=== PATIENT | male | born 1975 | race Caucasian/White ===

== ENCOUNTER 2017-01-20 15:31 | Emergency (ER) | payer BC ==
--- NOTE | 2017-01-20 15:44 | UC ---
Cardiac HPI - HPI Summary HPI Summary: 41 YEAR OLD MALE PRESENTS WITH RIGHT SIDED CHEST PAIN, ARM WEAKNESS AND NUMBNESS. I WILL SEND HIM TO THE ER TO RULE OUT VT/PE - History of Current Complaint Stated Complaint: NAUSEA ARM WEAK AND TNGLES Time Seen by Provider: 01/20/17 15:43 - Allergy/Home Medications Allergies/Adverse Reactions: Allergies Allergy/AdvReac Type Severity Reaction Status Date / Time No Known Allergies Allergy Verified 01/20/17 15:45 Home Medications: Home Medications Amphetamine/Dextroamph ER(NF) [Adderal XR (NF)] 2 tab PO QAM 01/20/17 [History Confirmed 01/20/17] PMH/Surg Hx/FS Hx/Imm Hx Previously Healthy: Yes Review of Systems Constitutional: Negative Skin: Negative Eyes: Negative ENT: Negative Respiratory: Shortness Of Breath Cardiovascular: Chest Pain - RIGHT SIDED Gastrointestinal: Negative Genitourinary: Negative Motor: Negative Neurovascular: Negative Musculoskeletal: Negative Neurological: Negative Psychological: Negative All Other Systems Reviewed And Are Negative: Yes Physical Exam Triage Information Reviewed: Yes Eye Exam: Normal ENT Exam: Normal Dental Exam: Normal Neck exam: Normal Neck: Positive: 1 Respiratory Exam: Normal Cardiovascular Exam: Normal Abdominal Exam: Normal Musculoskeletal Exam: Normal Neurological Exam: Normal Psychological Exam: Normal Skin Exam: Normal - Clinical Impression Provider Diagnoses: RIGHT SIDED CHEST PAIN. RIGHT ARM NUMBNESS Discharge - Discharge Plan Condition: Stable Disposition: HOME Patient Education Materials: Chest Pain (ED) Referrals: No Primary Care Phys,NOPCP [Primary Care Provider] - Additional Instructions: PLEASE GO TO ER TO RULE OUT VT
[2017-01-20 15:53] VITALS: BP 143/95
== END 2017-01-20 15:56 | disposition home or self-care (01) ==
LOC: UCEAST 15:31
DX: R07.89 Other chest pain (principal); R20.0 Anesthesia of skin; R06.02 Shortness of breath
CPT/HCPCS: 93005; 99201; G0463

== ENCOUNTER 2017-01-20 16:38 | Emergency (ER) | payer BC ==
[2017-01-20] MEDS ORDERED: NS 0.9% 1000 ML* 1,000 ML IV SCH (17:45)
[2017-01-20 18:01] LABS: Hematocrit 45 % (42-52); Hemoglobin 14.9 g/dl (14.0-18.0); Mean Corpuscular HGB Conc 34 g/dl (31-36); Mean Corpuscular Hemoglobin 30 pg (27-31); Mean Corpuscular Volume 88 fL (80-94); Mean Platelet Volume 8 um3 (7.4-10.4); Red Blood Count 5.06 10^6/ul (4.0-5.4); Red Cell Distribution Width 13 % (10.5-15); White Blood Count 7.2 10^3/ul (3.5-10.8)
[2017-01-20 18:25] LABS: Albumin 4.3 g/dL (3.2-5.2); BUN/Creatinine Ratio 15.2 (8-20); C Reactive Protein 3.05 mg/L (< 5.00); Calcium 8.6 mg/dL (8.6-10.3); EGFR African American 108.2 (>60); EGFR Non-African American 84.2 (>60); Globulin 2.7 g/dL (2-4); Magnesium 2.1 mg/dL (1.9-2.7); Total Bilirubin 0.3 mg/dL (0.2-1.0)
[2017-01-20 18:29] LABS: Potassium 4.2 mmol/L (3.5-5.0)
--- NOTE | 2017-01-20 18:30 | RAD ---
INDICATION: Weakness and fatigue COMPARISON: None. TECHNIQUE: Single AP portable view of the chest was obtained. FINDINGS: Image quality is compromised due to the relative inferiority of a portable chest x-ray. The heart and mediastinum exhibit normal size and contour. The lungs are grossly clear. There is no evidence of a large pleural effusion. Visualized bones are normal for the patient's age. IMPRESSION: No radiographic evidence for acute cardiopulmonary abnormality on this portable chest x-ray.
[2017-01-20 18:54] LABS: TSH (Thyroid Stimulating Horm) 1.59 mcIU/mL (0.34-5.60)
[2017-01-20 20:25] LABS: Urine Bilirubin Negative (Negative); Urine Glucose Negative (Negative); Urine Nitrite Negative (Negative)
--- NOTE | 2017-01-20 20:55 | RAD ---
indication: Right arm weakness with tingling and pain. COMPARISON: None A CT scan of the brain and c-spine was performed without intravenous contrast enhancement. Contiguous axial sections were obtained from the lung apices through the vertex. BRAIN: The ventricles, cisterns and sulci are within normal limits. No significant focal abnormality or mass effect is seen. The victor-white differentiation is adequately maintained. There is no evidence for intracranial hemorrhage. No significant bony abnormality is present. The mastoid air cells are appropriately aerated. There is moderate mucosal thickening of the bilateral ethmoid air cells and mild mucosal thickening of the sphenoid sinuses. C-SPINE: On the sagittal view images the vertebral bodies and bilateral facet joints are correctly aligned. The dens is intact and the atlantoaxial interval is not widened. There is intervertebral disc height loss and degeneration at C3/C4, C4/C5 and C5/C6. There is no hyperdense material in the cervical canal to indicate hemorrhage. The visualized musculature and soft tissues are normal. There is no gross lymphadenopathy visualized. The visualized portion of the lung apices are clear. IMPRESSION: 1. No calvarial fracture or acute intracranial hemorrhage. 2. Moderate paranasal sinus mucosal disease. 3. Degenerative disc disease of the cervical spine from C3 through C6. If clinically warranted superior characterization of the cervical spine can be made with nonemergent MRI.
--- NOTE | 2017-01-20 20:57 | RAD ---
INDICATION: Right arm weakness and right shoulder pain. Previous night the patient reports shortness of breath and nausea that has since resolved. COMPARISON: None TECHNIQUE: Axial source images of the chest were acquired without intravenous contrast from just above the lung apices to the base of the diaphragm. Coronal and sagittal reconstructed images were acquired. FINDINGS: There are no focal infiltrates or effusions. There are no pulmonary parenchymal masses. The heart is normal in size. There is no evidence of pericardial effusion. There is no evidence of aortic aneurysm or dissection. There is no readily apparent mediastinal, hilar, or axillary lymphadenopathy. The osseous structures appear normal. The visualized portions of the liver are homogenously hypodense relative to the spleen. IMPRESSION: 1. Normal noncontrast CT of the chest. 2. Likely hepatic steatosis.
--- NOTE | 2017-01-20 21:29 | ED ---
Demond Peacock Angela, scribed for Bimal Villanueva MD on 01/20/17 at 1936 . HPI Chest Pain - HPI Summary HPI Summary: 41 y/o male presents to the ED with nausea x1 week, weakness and dull pain on his R arm and fatigue x2 weeks. Pt notes that his arm feels weak from his collar bone down to his arm and has limited strength to lift up his R arm due to a sharp/dull pain. He reports his R leg feels stiff, he wouldn't call it "normal." He endorses a stiff neck when moving his neck to the right. Last night he felt SOB while sleeping and had to ambulate for relief. One week ago, pt notes he had an intermittent headache located across his forehead, now resolved. He has taken ibuprofen with no relief. Pt denies any trauma to the area, fever, myalgia, chest pain. No hx of tick bites. - History of Current Complaint Chief Complaint: EDChestPainROMI Time Seen by Provider: 01/20/17 19:12 Hx Obtained From: Patient Onset/Duration: Started Weeks Ago Timing: Constant - Weakness on R arm. Pain Intensity: 5 Aggravating Factor(s): Nothing Alleviating Factor(s): Nothing - Allergy/Home Medications Allergies/Adverse Reactions: Allergies Allergy/AdvReac Type Severity Reaction Status Date / Time No Known Allergies Allergy Verified 01/20/17 15:45 Home Medications: Home Medications Amphetamine/Dextroamph ER(NF) [Adderal XR (NF)] 40 - 60 mg PO QAM 01/20/17 [ History Confirmed 01/20/17] Venlafaxine EXT RELEASE CAP* [Effexor Xr CAP*] 225 mg PO DAILY 01/20/17 [ History Confirmed 01/20/17] PMH/Surg Hx/FS Hx/Imm Hx Endocrine/Hematology History: Denies: Hx Diabetes, Hx Thyroid Disease Cardiovascular History: Denies: Hx Hypertension Respiratory History: Denies: Hx Asthma, Hx Chronic Obstructive Pulmonary Disease (COPD) GI History: Denies: Hx Ulcer Infectious Disease History: No Infectious Disease History: Denies: Hx Clostridium Difficile, Hx Hepatitis, Hx Human Immunodeficiency Virus (HIV), Hx of Known/Suspected MRSA, Hx Shingles, Hx Tuberculosis, Hx Known/ Suspected VRE, Hx Known/Suspected VRSA, History Other Infectious Disease, Traveled Outside the [place] in Last 30 Days - Social History Alcohol Use: Occasionally Substance Use Type: Reports: None Smoking Status (MU): Light Every Day Tobacco Smoker Type: Smokeless Tobacco Amount Used/How Often: ON AND OFF FOR 8 YEARS Review of Systems Positive: Fatigue. Negative: Fever Positive: Other - Stiff neck Negative: Chest Pain Positive: Shortness Of Breath - Last night, now resolved Positive: Weakness. Negative: Headache - R arm All Other Systems Reviewed And Are Negative: Yes Physical Exam - Summary Physical Exam Summary: General: well-appearing, no pain distress Skin: warm, color reflects adequate perfusion, dry Head: normal Eyes: EOMI, CLAUDIA ENT: normal Neck: supple, nontender, Full ROM. Respiratory: CTA, breath sounds present Cardiovascular: RRR Abdomen: soft, nontender Bowel: present Musculoskeletal: normal, strength/ROM intact. Good molder sweep strength. Good bicep strength. Shoulder flexion is normal bilaterally. Abduction is 170 degrees on the L and 150 on the R with some weakness at full range. Internal rotation on the left is T5, on the right is T12. Neurological: normal, sensory/motor intact, A&O x3 Psychological: affect/mood appropriate GCS: 15 Triage Information Reviewed: Yes Vital Signs On Initial Exam: Initial Vitals Temp Pulse Resp BP Pulse Ox 98.3 F 88 16 142/85 99 01/20/17 16:52 01/20/17 16:52 01/20/17 16:52 01/20/17 16:52 01/20/17 16:52 Vital Signs Reviewed: Yes Diagnostics - Vital Signs Vital Signs Temp Pulse Resp BP Pulse Ox 01/20/17 18:00 134/80 01/20/17 17:30 90 131/80 99 01/20/17 17:10 91 99 01/20/17 17:09 85 133/80 01/20/17 17:05 97.6 F 93 18 133/80 100 01/20/17 16:52 98.3 F 88 16 142/85 99 - Laboratory Lab Results: Lab Results 01/20/17 01/20/17 01/20/17 Range/Units 17:45 17:45 17:45 WBC 7.2 (3.5-10.8) 10^3/ul RBC 5.06 (4.0-5.4) 10^6/ul Hgb 14.9 (14.0-18.0) g/dl Hct 45 (42-52) % MCV 88 (80-94) fL MCH 30 (27-31) pg MCHC 34 (31-36) g/dl RDW 13 (10.5-15) % Plt Count 203 (150-450) 10^3/ul MPV 8 (7.4-10.4) um3 Neut % (Auto) 53.2 (38-83) % Lymph % (Auto) 33.2 (25-47) % Tens[place] % (Auto) 8.7 (1-9) % Eos % (Auto) 4.3 (0-6) % Baso % (Auto) 0.6 (0-2) % Absolute Neuts (auto) 3.9 (1.5-7.7) 10^3/ul Absolute Lymphs (auto) 2.4 (1.0-4.8) 10^3/ul Absolute Monos (auto) 0.6 (0-0.8) 10^3/ul Absolute Eos (auto) 0.3 (0-0.6) 10^3/ul Absolute Basos (auto) 0 (0-0.2) 10^3/ul Absolute Nucleated RBC 0.01 10^3/ul Nucleated RBC % 0.1 INR (Anticoag Therapy) 0.86 L (0.89-1.11) APTT 31.6 (26.0-36.3) seconds D-Dimer, Quantitative < 200 (Less Than 230) ng/mL Sodium 138 (133-145) mmol/L Potassium 4.2 (3.5-5.0) mmol/L Chloride 105 (101-111) mmol/L Carbon Dioxide 26 (22-32) mmol/L Anion Gap 7 (2-11) mmol/L BUN 15 (6-24) mg/dL Creatinine 0.99 (0.67-1.17) mg/dL Est GFR ( Amer) 108.2 (>60) Est GFR (Non-Af Amer) 84.2 (>60) BUN/Creatinine Ratio 15.2 (8-20) Glucose 113 H (70-100) mg/dL Lactic Acid (0.5-2.0) mmol/L Calcium 8.6 (8.6-10.3) mg/dL Magnesium 2.1 (1.9-2.7) mg/dL Total Bilirubin 0.30 (0.2-1.0) mg/dL AST 31 (13-39) U/L ALT 65 H (7-52) U/L Alkaline Phosphatase 56 (34-104) U/L Total Creatine Kinase 51 (10-223) U/L CK-MB (CK-2) 1.8 (0.6-6.3) ng/mL Troponin I 0.00 (<0.04) ng/mL C-Reactive Protein 3.05 (< 5.00) mg/L B-Natriuretic Peptide ( - 100) pg/mL Total Protein 7.0 (6.4-8.9) g/dL Albumin 4.3 (3.2-5.2) g/dL Globulin 2.7 (2-4) g/dL Albumin/Globulin Ratio 1.6 (1-3) Lipase 18 (11.0-82.0) U/L TSH 1.59 (0.34-5.60) mcIU/mL 01/20/17 01/20/17 Range/Units 17:45 17:45 WBC (3.5-10.8) 10^3/ul RBC (4.0-5.4) 10^6/ul Hgb (14.0-18.0) g/dl Hct (42-52) % MCV (80-94) fL MCH (27-31) pg MCHC (31-36) g/dl RDW (10.5-15) % Plt Count (150-450) 10^3/ul MPV (7.4-10.4) um3 Neut % (Auto) (38-83) % Lymph % (Auto) (25-47) % Tensas % (Auto) (1-9) % Eos % (Auto) (0-6) % Baso % (Auto) (0-2) % Absolute Neuts (auto) (1.5-7.7) 10^3/ul Absolute Lymphs (auto) (1.0-4.8) 10^3/ul Absolute Monos (auto) (0-0.8) 10^3/ul Absolute Eos (auto) (0-0.6) 10^3/ul Absolute Basos (auto) (0-0.2) 10^3/ul Absolute Nucleated RBC 10^3/ul Nucleated RBC % INR (Anticoag Therapy) (0.89-1.11) APTT (26.0-36.3) seconds D-Dimer, Quantitative (Less Than 230) ng/mL Sodium (133-145) mmol/L Potassium (3.5-5.0) mmol/L Chloride (101-111) mmol/L Carbon Dioxide (22-32) mmol/L Anion Gap (2-11) mmol/L BUN (6-24) mg/dL Creatinine (0.67-1.17) mg/dL Est GFR ( Amer) (>60) Est GFR (Non-Af Amer) (>60) BUN/Creatinine Ratio (8-20) Glucose (70-100) mg/dL Lactic Acid 1.5 (0.5-2.0) mmol/L Calcium (8.6-10.3) mg/dL Magnesium (1.9-2.7) mg/dL Total Bilirubin (0.2-1.0) mg/dL AST (13-39) U/L ALT (7-52) U/L Alkaline Phosphatase (34-104) U/L Total Creatine Kinase (10-223) U/L CK-MB (CK-2) (0.6-6.3) ng/mL Troponin I (<0.04) ng/mL C-Reactive Protein (< 5.00) mg/L B-Natriuretic Peptide 11 ( - 100) pg/mL Total Protein (6.4-8.9) g/dL Albumin (3.2-5.2) g/dL Globulin (2-4) g/dL Albumin/Globulin Ratio (1-3) Lipase (11.0-82.0) U/L TSH (0.34-5.60) mcIU/mL Result Diagrams: 01/20/17 17:45 01/20/17 17:45 Lab Statement: Any lab studies that have been ordered have been reviewed, and results considered in the medical decision making process. - Radiology Chest XR Xray Interpretation: No Acute Changes - IMPRESSION: no radiographic evidence for acute cardiopulmonary abnormality on this portable chest x-ray. Radiology Interpretation Completed By: Radiologist - CT CT Brain CT Interpretation: No Acute Changes - IMPRESSION: 1. No calvarial fracture or acute intracranial hemorrhage. 2. Moderate paranasal sinus mucosal disease. 3. Degenerative disc disease of the cervical spine from C3 through C6. If clinically warranted superior characterization of the cervical spine can be made with nonemergent MRI. CT Interpretation Completed By: Radiologist CT Cervical Spine CT Interpretation: Positive (See Comments) - IMPRESSION: 1. No calvarial fracture or acute intracranial hemorrhage. 2. Moderate paranasal sinus mucosal disease. 3. Degenerative disc disease of the cervical spine from C3 through C6. If clinically warranted superior characterization of the cervical spine can be made with nonemergent MRI. CT Interpretation Completed By: Radiologist CT Chest CT Interpretation: No Acute Changes - IMPRESSION: 1. Normal noncontrast CT of the chest. 2. Likely hepatic steatosis. CT Interpretation Completed By: Radiologist - EKG 17:14 Cardiac Rate: NL EKG Rhythm: Sinus Rhythm ST Segment: Normal Ectopy: None Chest Pain Course/Dx - Course Course Of Treatment: DISCUSSED RESULTS WITH PATIENT. HE HAS DECREASED ROM OF RT SHOULDER WITH POSSIBLE WEAKNESS OF THE DELTOID. HE ALSO HAS DEGENERATIVE CHANGES IN HIS NECK WHICH MAY BE CAUSING A RADICULOPATHY. HE HAS A F/U WITH HIS PMD SCHEDULED FOR 01/25/17. WE DISCUSSED THE POSSIBLE NEED FOR AN MRI. PATIENT DECLINED RX FOR ABX FOR THE CHRONIC SINUSITIS; HE WILL F/U WITH HIS ENT. - Diagnoses Provider Diagnoses: Shoulder pain, right, Shoulder pain, right, Neck pain, Decreased range of motion (ROM) of shoulder, Chronic sinusitis Discharge - Discharge Plan Condition: Stable Disposition: HOME Patient Education Materials: Shoulder Pain (ED), Neck Pain (ED), Sinusitis (ED) Referrals: No Primary Care Phys,NOPCP [Primary Care Provider] - Additional Instructions: FOLLOW UP WITH YOUR DOCTOR AT [facility] ON 01/25/17 SCHEDULED. IT IS POSSIBLE THAT YOU HAVE A PINCHED NERVE IN YOU NECK CAUSING YOUR RIGHT SHOULDER/ARM PAIN AND DECREASED RANGE OF MOTION. GET YOUR ARM RECHECKED AT YOUR DOCTOR VISIT AND DETERMINE IF AN MRI WILL BE HELPFUL. RETURN TO THE EMERGENCY DEPARTMENT FOR ANY WORSENING OF YOUR CONDITION; WEAKNESS , NUMBNESS, YOU FELL ILL OR QUESTIONS OR CONCERNS. The documentation as recorded by the Demond jon Angela accurately reflects the service I personally performed and the decisions made by me, Bimal Villanueva MD.
[2017-01-20 21:44] VITALS: BP 133/92
== END 2017-01-20 21:46 | disposition home or self-care (01) ==
LOC: ED 16:38
DX: R53.1 Weakness (principal); R53.83 Other fatigue; M25.511 Pain in right shoulder; M54.2 Cervicalgia; J32.9 Chronic sinusitis, unspecified
CPT/HCPCS: 36415; 70450; 71010; 71250; 72125; 80053; 81003; 82550; 82553; 83605; 83690; 83735; 83880; 84443; 84484; 85025; 85379; 85610; 85730; 86140; 86618; 93005; 96374; 99283

== ENCOUNTER 2017-08-14 11:51 | Emergency (ER) | payer BC ==
[2017-08-14 12:28] VITALS: BP 124/84
--- NOTE | 2017-08-14 12:54 | UC ---
Respiratory Complaint HPI - HPI Summary HPI Summary: 41 y/o male presents to the urgent care c/o chills, fever, dry coughing, sore throat, fatigue, sinus and congestion for 2 days. Pt is concern w/ influenza since he has been exposed at work. Pt states pain w/ swallowing is 5/10. He has taking Nyquill PO to alleviate symptoms. Pt has decrease appetite. Pt denies SOB , chest pain, abdominal pain, N/V/D. - History of Current Complaint Chief Complaint: UCRespiratory Stated Complaint: CHEST CONGESTION, AND TIREDNESS Time Seen by Provider: 08/14/17 12:53 Hx Obtained From: Patient Onset/Duration: Gradual Onset, Lasting Days - 2 days, Still Present, Worse Since - today Timing: Constant Severity Initially: Mild Severity Currently: Moderate Pain Intensity: 5 Pain Scale Used: 0-10 Numeric Character: Cough: Nonproductive Aggravating Factors: Recumbent Position Alleviating Factors: OTC Meds Associated Signs And Symptoms: Positive: Fever, Chills, URI, Nasal Congestion, Sinus Discomfort - Risk Factors Pulmonary Embolism Risk Factors: Negative Cardiac Risk Factors: Negative Pseudomonas Risk Factors: Negative Tuberculosis Risk Factors: Negative - Allergies/Home Medications Allergies/Adverse Reactions: Allergies Allergy/AdvReac Type Severity Reaction Status Date / Time No Known Allergies Allergy Verified 08/14/17 12:29 Home Medications: Home Medications Desvenlafaxine Succinate [Pristiq] 1 tab PO DAILY 08/14/17 [History Confirmed ] PMH/Surg Hx/FS Hx/Imm Hx Previously Healthy: Yes Endocrine History: Diabetes - diet control - Surgical History Surgical History: None - Family History Known Family History: Positive: Cardiac Disease, Diabetes - Social History Occupation: Employed Full-time Lives: With Family Alcohol Use: Occasionally Substance Use Type: Prescribed Smoking Status (MU): Former Smoker Type: Smokeless Tobacco Amount Used/How Often: ON AND OFF FOR 8 YEARS Review of Systems Constitutional: Fever, Chills, Fatigue, Other - body aches Skin: Negative Eyes: Negative ENT: Sore Throat, Nasal Discharge, Sinus Congestion Respiratory: Cough - dry Cardiovascular: Negative Gastrointestinal: Negative Genitourinary: Negative Motor: Negative Neurovascular: Negative Musculoskeletal: Negative Neurological: Headache Psychological: Negative Is Patient Immunocompromised?: No All Other Systems Reviewed And Are Negative: Yes Physical Exam Triage Information Reviewed: Yes Vital Signs: Initial Vital Signs Temp 97.6 F 08/14/17 12:25 Pulse 89 08/14/17 12:25 Resp 18 08/14/17 12:25 BP 124/84 08/14/17 12:25 Pulse Ox 98 08/14/17 12:25 - Additional Comments VITAL SIGNS: Reviewed. GENERAL: Patient is a well developed and nourished male who is sitting comfortable in the examining table. Patient is not in any acute respiratory distress. HEAD AND FACE: No signs of trauma. No ecchymosis, hematomas or skull depressions. No sinus tenderness. edematous erythematous nasal mucosa with yellowish discharge, EYES: PERRLA, EOMI x 2, No injected conjunctiva, clear watery eyes, no nystagmus. No photophobia. EARS: Hearing grossly intact. Ear canals and tympanic membranes are within normal limits. MOUTH: Positive pharynx with erythema, no exudates,no palatal petechiae. no B/L tonsillar enlargement Uvula in midline. NECK: Supple, trachea is midline, Positive anterior cervical lymphadenopathy, no JVD, no carotid bruit, no c-spine tenderness, neck with full ROM. No meningeal signs, no Kernig's or brudzinskis signs. CHEST: Symmetric, no tenderness at palpation LUNGS: Clear to auscultation bilaterally. No wheezing or crackles. CVS: Regular rate and rhythm, S1 and S2 present, no murmurs or gallops appreciated. ABDOMEN: Soft, non-tender. No signs of distention. No rebound no guarding, and no masses palpated. Bowel sounds are normal. EXTREMITIES: FROM in all major joints, no edema, no cyanosis or clubbing. NEURO: Alert and oriented x 3. No acute neurological deficits. Speech is normal and follows commands. SKIN: Dry and warm UC Diagnostic Evaluation - Laboratory O2 Sat by Pulse Oximetry: 98 Respiratory Course/Dx - Course Course Of Treatment: 41 y/o male presents to the urgent care c/o chills, fever, dry coughing, sore throat, fatigue, sinus and congestion for 2 days. Pt is concern w/ influenza since he has been exposed at work. Pt states pain w/ swallowing is 5/10. He has taking Nyquill PO to alleviate symptoms. Pt has decrease appetite. Pt denies SOB, chest pain, abdominal pain, N/V/D. Hx obtained. Pt with viral syndrome on examination. Rapid strep ordered, result: negative.Influenza A&B ordered: result: negative. Pt educated on results and advised symptomatic Tx. However Pt requested Rx for Rx Tamiflu Pt RX TAmiflu and ibuprofen PO to alleviates symptoms. Advised on hand washing and wear a mask to avoid spreading. Pt advised to rest, increase fluid intake, eat well and avoid strenuous exercise. If symptoms do not improve or worsen advised to return to the urgent care or f/u with her PCP for further evaluation and treatment. Pt understood and agreed with plan of care. - Differential Dx/Diagnosis Differential Diagnosis/HQI/PQRI: Bronchitis, Influenza, Laryngitis, Lower Resp Infection, Other - pharyngitis Provider Diagnoses: 1-Viral syndrome Discharge - Discharge Plan Condition: Stable Disposition: HOME Prescriptions: Ibuprofen TAB* [Motrin TAB* 800 MG] 800 mg PO Q6H PRN #20 tab PRN Reason: Pain Oseltamivir CAP* [Tamiflu CAP*] 75 mg PO BID #10 cap Patient Education Materials: Viral Syndrome (ED) Forms: *Work Release Referrals: [facility] [Outside] - 3 Days Additional Instructions: 1- Please take the full course of the antiviral to avoid resistance. Encourage hand washing and wear a mask to avoid spreading. 2-Please take ibuprofen PO q6-8hrs prn as instructed after meals to alleviate fever, and sore throat. Increase fluid intake, eat well, rest and avoid strenuous exercise 3-If symptoms do not improve or worsen please return to the urgent care or f/u with your PCP in 3 days for further evaluation and treatment.
== END 2017-08-14 13:37 | disposition home or self-care (01) ==
LOC: UCEAST 11:51
DX: B34.9 Viral infection, unspecified (principal); E11.9 Type 2 diabetes mellitus without complications; Z87.891 Personal history of nicotine dependence
CPT/HCPCS: 87502; 87651; 99212; G0463